=== PATIENT | male | born 1935 | race Caucasian/White ===

== ENCOUNTER 2016-06-04 14:46 | Emergency (ER) | payer MEDICARE, BC ==
[~2016-06-04] VITALS: Ht 180.3 cm; Wt 79.5 kg
[~2016-06-04 14:46] MED LIST: ASPIRIN 32325 MG/TAB PO; ASPIRIN E.C. 8181 MG PO; COZAAR; COZAAR100 MG PO; COZAAR50 MG PO; CYCLOBENZAPRINE10 MG PO; CYMBALTA; CYMBALTA 30MG30 MG PO; GABAPENTIN300 MG PO; HCTZ; IBU800 MG PO; LEVAQUIN 750MG750 M1 PO; LIPITOR 40MG TA40 MG PO; MAGNESIUM250 M1 PO; MAXZIDE-25MG TA1 TAB PO; MULTIPLE VITAMI1 CAP PO; NITRO-DUR0.4 MG/PAT TD; NITROSTAT0.15 MG SL; NITROSTAT0.4 MG/TAB SL; NORCO 325 MG-51 TAB PO; ORACEA PO; PEPCID AC 10MG10 MG PO; PEPCID AC20 M1 PO; PLAVIX 75MG TAB75 MG PO; PROVENTIL0.09 MG/A1 IH; TOPROL XL 25MG25 MG PO; TYLENOL #2 3001 TAB PO; TYLENOL 325MG325 MG PO; VISTARIL50 MG PO; [UNRECOGNIZED DRUG - REMARK]
[2016-06-04 14:52] VITALS: TEMP 97.1
[2016-06-04 15:43] LABS: BASO % 0.4 % (0.0-2.0); EOS % 0.3 % (0-4.0); GRAN # 7.3 (1.4-6.5); HEMATOCRIT 39.2 % (42.0-52.0); HEMOGLOBIN 13.3 g/dl (13.5-18.0); LYMPH # 0.3 (1.2-3.4); LYMPH % 3.9 % (20.0-51.0); MEAN CELL VOLUME 94 fl (80.0-100.0); MEAN CORPUSCULAR HEMOGLOBIN 32 pg (27.0-31.0); MEAN CORPUSCULAR HGB CONC 34 g/dl (33.0-37.0); MEAN PLATELET VOLUME 9.3 fl (7.4-10.4); MONO # 0.2 (0.1-0.6); PLATELET COUNT 205 K/mm3 (130-400); RED BLOOD COUNT 4.18 M/mm3 (4.20-5.60); REDCELL DISTRIBUTION WIDTH-CV 12.3 % (11.5-14.5)
[2016-06-04 15:58] LABS: INR 1.1 (0.8-3.0); PROTHROMBIN TIME 12.2 SECONDS (9.7-12.8)
[2016-06-04 16:00] LABS: ADJUSTED CALCIUM 9.8 mg/dL (8.4-10.2); ALANINE AMINOTRANSFERASE 124 U/L (21-72); ALKALINE PHOSPHATASE 113 U/L (50-136); ANION GAP 12 mmol/L (7-16); BILIRUBIN,TOTAL 2.6 mg/dL (0.0-1.0); BLOOD UREA NITROGEN 23 mg/dL (9-20); CALCIUM 9.8 mg/dL (8.4-10.2); CARBON DIOXIDE 26 mmol/L (22-30); CHLORIDE 96 mmol/L (98-107); CREATININE, serum 1.21 mg/dL (0.66-1.25); GLUCOSE 158 mg/dL (74-106); LIPASE 327 U/L (23-300); PARTIAL THROMBOPLASTIN TIME 32.7 SECONDS (26.0-37.0); POTASSIUM 3.7 mmol/L (3.4-5.0); SODIUM 134 mmol/L (137-145); TOTAL PROTEIN 6.9 gm/dL (6.4-8.2)
[2016-06-04 16:16] LABS: PROLACTIN 12.7 ng/mL (3.7-17.9)
[2016-06-04 16:19] LABS: TROPONIN-I < 0.012 ng/mL (0.000-0.034)
[2016-06-04 17:52] VITALS: BP 135/84; PULSE 82
== END 2016-06-04 17:58 | disposition home or self-care (01) ==
LOC: COL.ER 14:46 → SURG 16:46 → COL.ER 16:46 → SURG 21:27
PROVIDERS: Emergency Medicine
DX: K80.00 Calculus of gallbladder with acute cholecystitis without obstruction (principal); Z79.02 Long term (current) use of antithrombotics/antiplatelets; I25.10 Atherosclerotic heart disease of native coronary artery without angina pectoris; Z95.5 Presence of coronary angioplasty implant and graft; I10 Essential (primary) hypertension
CPT/HCPCS: J2765; J3010; J7030; Q9967

== ENCOUNTER 2016-06-13 09:12 | Day surgery (SDC) | payer MEDICARE, BC ==
[~2016-06-13] VITALS: Ht 180.3 cm; Wt 80.5 kg
[2016-06-13] MEDS ORDERED: NORVASC 10MG10 MG PO (09:46)
[2016-06-13] MEDS ORDERED: TYLENOL 325MG325 MG PO (09:47)
[2016-06-13] MEDS ORDERED: EFFIENT10 MG PO (09:47)
[2016-06-13] MEDS ORDERED: METROCREAM CREA45 GM TP (09:47)
[2016-06-13] MEDS ORDERED: OMEGA-3 1000 MG1 CAP PO (09:48)
[2016-06-13] MEDS ORDERED: UNISOM25 MG PO (09:48)
[2016-06-13 10:01] VITALS: BP 130/74; PULSE 57; TEMP 97.6
[2016-06-13] MEDS ORDERED: NORCO 325 MG-7.1 TAB PO (11:53)
[2016-06-13 12:45] VITALS: BP 130/68; PULSE 74; TEMP 97.3
[2016-06-13 13:00] VITALS: BP 128/67; PULSE 73
[2016-06-13 13:15] VITALS: BP 140/77; PULSE 87
[2016-06-13 13:30] VITALS: BP 145/84; PULSE 82
[2016-06-13 13:42] VITALS: BP 132/64; PULSE 72
== END 2016-06-13 14:10 | disposition home or self-care (01) ==
LOC: SDCO 09:12
DX: K80.10 Calculus of gallbladder with chronic cholecystitis without obstruction (principal); I25.10 Atherosclerotic heart disease of native coronary artery without angina pectoris; Z87.891 Personal history of nicotine dependence
CPT/HCPCS: J0330; J0690; J1100; J2405; J2704; J2710; J3010; J7120; Q9967